=== PATIENT | female | born 1935 | race Caucasian/White ===

== ENCOUNTER 2017-04-01 22:51 | Emergency (ER) | payer OTHER, MEDICARE ==
[~2017-04-01] VITALS: Ht 157.5 cm; Wt 59.0 kg
[2017-04-01] MEDS ORDERED: ZOCOR20 MG PO (23:08)
[2017-04-01] MEDS ORDERED: NORVASC5 MG PO (23:09)
[2017-04-01] MEDS ORDERED: LEVOTHYROXINE100 MC1 PO (23:10)
[2017-04-01] MEDS ORDERED: XANAX 0.25 MG0.25 MG PO (23:10)
[2017-04-01] MEDS ORDERED: TYLENOL325 MG PO (23:11)
[2017-04-01] MEDS ORDERED: CENTRUM SILVER1 EAC5 PO (23:12)
[2017-04-01] MEDS ORDERED: PREDNISONE 20 M20 MG PO (23:27)
[2017-04-02] MEDS ORDERED: NORCO 5-325 TA1 EACH PO (00:19)
[2017-04-02 02:39] VITALS: BP 168/88
== END 2017-04-02 00:26 | disposition home or self-care (01) ==
LOC: ER 22:51
DX: M10.9 Gout, unspecified (principal); M79.672 Pain in left foot; M72.2 Plantar fascial fibromatosis